=== PATIENT | male | born 1985 | race Hispanic/Latino ===

== ENCOUNTER 2019-11-10 22:15 | Emergency (ER) | payer MEDICAID ==
[2019-11-11] MEDS ORDERED: SUMATRIPTAN SUCCINATE 6 MG/VIAL 0.5ML SQ ONE
== END 2019-11-11 01:32 | disposition home or self-care (01) ==
LOC: EDH 22:15
DX: G43.909 Migraine, unspecified, not intractable, without status migrainosus (principal); H93.19 Tinnitus, unspecified ear; F20.9 Schizophrenia, unspecified; F31.9 Bipolar disorder, unspecified; F41.9 Anxiety disorder, unspecified; Z88.6 Allergy status to analgesic agent
CPT/HCPCS: 36415; 70450; 80053; 80305; 81003; 83735; 85025; 96372; 99284; G0480 ×2; G0481; J3030

== ENCOUNTER 2023-11-16 13:48 | Emergency (ER) | payer MEDICAID ==
[~2023-11-16] VITALS: Ht 160 cm; Wt 58.1 kg
[2023-11-16 14:40] VITALS: BP 134/92; PULSE 98; RESP 16
[2023-11-16 14:46] LABS: BASOPHILS # (AUTO) 0.01 K/uL (0.00-0.20); BASOPHILS % (AUTO) 0.1 % (0.0-5.0); EOSINOPHILS # (AUTO) 0.12 K/uL (0.00-0.70); EOSINOPHILS % (AUTO) 1.6 % (0.0-8.0); IMMATURE GRANULOCYTE ABSOLUTE 0.04 K/uL (0-1); LYMPHOCYTES # (AUTO) 0.7 K/uL (1.0-4.8); LYMPHOCYTES % (AUTO) 8.7 % (21.0-51.0); MEAN CORPUSCULAR HEMOGLOBIN 30.2 pg (27.0-33.0); MEAN CORPUSCULAR HGB CONC 34.6 g/dL (32.0-36.0); MEAN CORPUSCULAR VOLUME 87.2 fL (79-99); MONOCYTES # (AUTO) 0.9 K/uL (0.1-1.0); NEUTROPHILS # (AUTO) 5.9 K/uL (1.8-7.7); NEUTROPHILS % (AUTO) 77.1 % (40.0-77.0); PLATELET COUNT (AUTO) 168 K/uL (130-400); RED CELL DISTRIBUTION WIDTH 12.5 % (11.0-15.5); WHITE BLOOD COUNT (AUTO) 7.7 K/uL (4.8-10.8)
[2023-11-16 15:00] LABS: POTASSIUM 3.7 mmol/L (3.5-5.1)
[2023-11-16] MEDS: LACTATED RINGERS 1000ML 1,000 ML IV ONE (15:17)
[2023-11-16 15:21] LABS: APPEARANCE,URINE CLEAR (CLEAR); BILIRUBIN,URINE NEGATIVE (NEGATIVE); COLOR,URINE LIGHT-YELLOW (YELLOW); GLUCOSE, URINE (UA) NEGATIVE (NEGATIVE); KETONES,URINE NEGATIVE (NEGATIVE); LEUKOCYTE ESTERASE ,URINE 25 Leu/uL (NEGATIVE); NITRATE,URINE NEGATIVE (NEGATIVE); OCCULT BLOOD,URINE NEGATIVE (NEGATIVE); PROTEIN,URINE 10 mg/dL (NEGATIVE)
[2023-11-16 15:25] LABS: ADD UA MICROSCOPIC YES
[2023-11-16 15:33] LABS: BACTERIA,URINE RARE /HPF (None Seen); MUCUS,URINE RARE LPF (None Seen); RBC,URINE 0-1 /HPF (0-1); SQUAMOUS EPITHELIAL CELL,UR RARE /HPF (0-2)
[2023-11-16 16:04] LABS: RAPID GROUP A STREP negative (NEGATIVE)
[2023-11-16 16:11] LABS: INFLUENZA TYPE A Negative For Type A (NEGATIVE); INFLUENZA TYPE B Negative For Type B (NEGATIVE)
[2023-11-16 16:59] LABS: SARS-CoV-2, RNA, NAAT POSITIVE SARS CoV-2 (NEGATIVE)
[2023-11-16] MEDS ORDERED: MOLN200C PO (17:15)
== END 2023-11-16 17:32 | disposition home or self-care (01) ==
LOC: EDH 13:48
DX: U07.1 COVID-19 (principal)
CPT/HCPCS: 99283; 87635; 80048; 85025; 87880; 87804 ×2; 81001; 36415; J7120